=== PATIENT | male | born 1990 | race Hispanic/Latino ===

== ENCOUNTER 2020-12-24 15:59 | Emergency (ER) | payer OTHER ==
[~2020-12-24] VITALS: Ht 177.8 cm; Wt 94.3 kg
[2020-12-24] MEDS ORDERED: KETOROLAC TROMETHAMINE 10 MG TAB PO ONE (17:15)
[2020-12-24 18:50] VITALS: BP 150/97
== END 2020-12-24 18:51 | disposition home or self-care (01) ==
LOC: M ED 15:59
DX: H72.2X1 Other marginal perforations of tympanic membrane, right ear (principal); W42.9XXA Exposure to other noise, initial encounter; Y99.1 Military activity; Y92.9 Unspecified place or not applicable; Y93.9 Activity, unspecified; E86.0 Dehydration